=== PATIENT | female | born 1990 | race American Indian/Alaskan Native ===

== ENCOUNTER 2017-10-15 08:07 | Emergency (ER) | payer SELFPAY ==
[2017-10-15] MEDS ORDERED: NACL 0.9% 1000 ML 1,000 ML IV ONE ×2 (09:12→10:53)
[2017-10-15 09:45] LABS: Bacteria,Urine 4+ /HPF (Negative); Bilirubin,Urine NEG (Negative); Blood,Urine NEG (Negative); Color,Urine Yellow (Yellow); Mucus,Urine FEW /HPF
[2017-10-15 09:47] LABS: HCG Qualitative,Urine Negative (Negative)
[2017-10-15 09:48] LABS: WBC,Urine > 182.0 /HPF (0.0-6.0)
[2017-10-15 10:10] LABS: Basophils % (Auto) 0.3 % (0.0-1.8); Eosinophils % (Auto) 0.4 % (0.0-4.3); Hematocrit 42.7 % (30.3-42.9); Lymphocytes # (Auto) 1.3 K/mm3 (1.2-5.4); Lymphocytes % (Auto) 15.9 % (13.4-35.0); Mean Corpuscular HGB Conc 33 % (30-34); Mean Corpuscular Hemoglobin 29 pg (28-32); Mean Corpuscular Volume 90 fl (79-97); Monocytes # (Auto) 0.9 K/mm3 (0.0-0.8); Platelet Count 222 K/mm3 (140-440); Red Blood Count 4.76 M/mm3 (3.65-5.03); Red Cell Distribution Width 14.2 % (13.2-15.2)
[2017-10-15 10:27] LABS: Alanine Aminotransferase 16 units/L (7-56); Albumin 3.8 g/dL (3.9-5); BUN/Creatinine Ratio 8; Blood Urea Nitrogen 5 mg/dL (7-17); Calcium 9.4 mg/dL (8.4-10.2); Hemolysis Index 11
[2017-10-15] MEDS ORDERED: TORADOL IV ONE (10:53)
[2017-10-15] MEDS ORDERED: ROCEPHIN IM ONE (10:53)
[2017-10-15] MEDS ORDERED: XYLOCAINE 1% MPF 5 mL INFILTRATI ONE (10:53)
--- NOTE | 2017-10-15 10:54 | Emergency Department Report ---
ED Female HPI - General Chief complaint: Abdominal Pain Stated complaint: BILATERAL FLANK PAIN Time Seen by Provider: 10/15/17 10:52 Source: patient Mode of arrival: Ambulatory Limitations: No Limitations - History of Present Illness Initial comments: This is a 27-year-old female nontoxic, well nourished in appearance, no acute signs of distress presents to the ED with c/o of dysuria, urinary frequency, pelvic and flank pain x1 week. Patient describes pelvic pain as cramping and aching with level of 3/10 diffuse. Patient denies abdominal pain, vomiting, nausea, Chest pain, short of breath, fever, chills, headache, stiff neck, numbness or tingling. Patient denies any diarrhea or constipation. Patient denies any vaginal bleeding or discharge. Patient denies any recent travels. Patient denies any allergies or significant PMH. MD Complaint: dysuria, pelvic pain, other (bilateral flank pain) -: week(s) (1) Radiation: non-radiating Severity: mild Severity scale (0 -10): 3 Quality: cramping Consistency: intermittent Improves with: none Worsens with: urination Are you Now?: No Last Menstrual Period: 09/15/17 EDC: 06/22/18 Associated Symptoms: dysuria. denies: vaginal discharge, vaginal bleeding, abdominal pain, nausea/vomiting, fever/chills, headaches, loss of appetite, hematuria, rash, seizure, shortness of breath, syncope, weakness - Related Data Previous Rx's Medication Instructions Recorded Last Taken Type Acetaminophen/Codeine [Tylenol 1 tab PO Q6H PRN #12 tab 10/15/17 Unknown Rx /Codeine # 3 tab] Ciprofloxacin HCl [Ciprofloxacin 500 mg PO Q12HR #14 tab 10/15/17 Unknown Rx TAB] Ibuprofen [Motrin] 600 mg PO Q8H PRN #30 tablet 10/15/17 Unknown Rx Ondansetron [Zofran Odt] 4 mg PO Q8HR PRN #20 tab.rapdis 10/15/17 Unknown Rx Allergies Allergy/AdvReac Type Severity Reaction Status Date / Time No Known Allergies Allergy Verified 10/15/17 10:59 ED Review of Systems ROS: Stated complaint: BILATERAL FLANK PAIN Other details as noted in HPI Constitutional: denies: chills, fever Eyes: denies: eye pain, eye discharge, vision change ENT: denies: ear pain, throat pain Respiratory: denies: cough, shortness of breath, wheezing Cardiovascular: denies: chest pain, palpitations Endocrine: no symptoms reported Gastrointestinal: abdominal pain (pelvic pain). denies: nausea, vomiting, diarrhea Genitourinary: urgency, dysuria, frequency. denies: hematuria, discharge, abnormal menses Musculoskeletal: denies: back pain, joint swelling, arthralgia Skin: denies: rash, lesions Neurological: denies: headache, weakness, paresthesias Psychiatric: denies: anxiety, depression Hematological/Lymphatic: denies: easy bleeding, easy bruising ED Past Medical Hx - Past Medical History Previous Medical History?: No - Surgical History Additional Surgical History: lump removed - Social History Smoking Status: Never Smoker - Medications Home Medications: Home Medications Medication Instructions Recorded Confirmed Last Taken Type Acetaminophen/Codeine [Tylenol 1 tab PO Q6H PRN #12 tab 10/15/17 Unknown Rx /Codeine # 3 tab] Ciprofloxacin HCl [Ciprofloxacin 500 mg PO Q12HR #14 tab 10/15/17 Unknown Rx TAB] Ibuprofen [Motrin] 600 mg PO Q8H PRN #30 tablet 10/15/17 Unknown Rx Ondansetron [Zofran Odt] 4 mg PO Q8HR PRN #20 tab.rapdis 10/15/17 Unknown Rx ED Physical Exam - General Limitations: No Limitations General appearance: alert, in no apparent distress - Head Head exam: Present: atraumatic, normocephalic - Eye Eye exam: Present: normal appearance, PERRL, EOMI Pupils: Present: normal accommodation - ENT ENT exam: Present: normal exam, mucous membranes moist - Neck Neck exam: Present: normal inspection, full ROM. Absent: tenderness, meningismus, lymphadenopathy - Respiratory Respiratory exam: Present: normal lung sounds bilaterally. Absent: respiratory distress, wheezes, rales, rhonchi, stridor, chest wall tenderness, accessory muscle use, decreased breath sounds, prolonged expiratory - Cardiovascular Cardiovascular Exam: Present: regular rate, normal rhythm, normal heart sounds. Absent: bradycardia, tachycardia, irregular rhythm, systolic murmur, diastolic murmur, rubs, gallop - GI/Abdominal GI/Abdominal exam: Present: soft, normal bowel sounds. Absent: distended, tenderness, guarding, rebound, rigid, diminished bowel sounds - Expanded GI/Abdominal Exam Expanded GI/Abdominal exam: Absent: psoas sign, obturator sign, heel tap sign, Griffin's sign, Rovsing's sign, tenderness at Mcburney's Point, ascites - Rectal Rectal exam: Present: deferred - Extremities Exam Extremities exam: Present: normal inspection, full ROM, normal capillary refill. Absent: tenderness - Back Exam Back exam: Present: normal inspection, full ROM. Absent: tenderness, CVA tenderness (R), CVA tenderness (L), muscle spasm, paraspinal tenderness, vertebral tenderness, rash noted - Neurological Exam Neurological exam: Present: alert, oriented X3, normal gait - Psychiatric Psychiatric exam: Present: normal affect, normal mood - Skin Skin exam: Present: warm, dry, intact, normal color. Absent: rash ED Course Vital Signs 10/15/17 10/15/17 09:07 12:06 Temperature 98.7 F Pulse Rate 87 Respiratory 17 18 Rate Blood Pressure 140/81 O2 Sat by Pulse 99 Oximetry - Reevaluation(s) Reevaluation #1: 10/15/17 12:08 Patient is speaking in full sentences with no signs of distress noted. - Consultations Consultation #1: 10/15/17 14:02 Patient has been consulted with Jarvis Bartlett about patient history, physical exam, and labs and examined and screened patient and agrees to ED plan of care and discharge plan of care. ED Medical Decision Making - Lab Data Result diagrams: 10/15/17 09:46 10/15/17 09:46 - Medical Decision Making This is a 27-year-old female that presents with UTI and pyelonephritis. Patient is stable and was examined by me and Jarvis Bartlett. There is no significant abdominal tenderness. Negative signs of symptoms of appendicitis. Labs obtained. UA obtained. CT with contrast of abdomen obtained and dictated by the radiologist. Patient is notified of the report with no questions noted by the patient. Vital signs are stable prior to discharge. Patient received Toradol and 1G of Rocephin IV in the ED which patient stated symptoms has resolved and subsided. A by mouth challenge has been obtained and patient tolerated well with no nausea vomiting. Patient was notified of strict precautions of appendicitis symptoms and to return to the ED if symptoms occurs as soon as possible. Patient was also instructed to Follow-up with a primary care doctor in 3-5 days or if symptoms worsen and continue return to emergency room as soon as possible. At time of discharge, the patient does not seem toxic or ill in appearance. No acute signs of distress noted. Patient agrees to discharge treatment plan of care. No further questions noted by the patient. Critical care attestation.: If time is entered above; I have spent that time in minutes in the direct care of this critically ill patient, excluding procedure time. ED Disposition Clinical Impression: Pyelonephritis UTI (urinary tract infection) Qualifiers: Urinary tract infection type: acute pyelonephritis Qualified Code(s): N10 - Acute pyelonephritis Disposition: TO HOME OR SELFCARE Is pt being admited?: No Does the pt Need Aspirin: No Condition: Stable Instructions: Acute Pyelonephritis (ED), Ciprofloxacin (By mouth) Additional Instructions: Follow-up with a primary care doctor in 3-5 days or if symptoms worsen and continue return to emergency room as soon as possible. Prescriptions: Acetaminophen/Codeine [Tylenol /Codeine # 3 tab] 1 tab PO Q6H PRN #12 tab PRN Reason: Pain , Severe (7-10) Ciprofloxacin HCl [Ciprofloxacin TAB] 500 mg PO Q12HR #14 tab Ibuprofen [Motrin] 600 mg PO Q8H PRN #30 tablet PRN Reason: Pain Ondansetron [Zofran Odt] 4 mg PO Q8HR PRN #20 tab.rapdis PRN Reason: Nausea Referrals: PRIMARY CAREMD [Primary Care Provider] - 3-5 Days INNA HAYWARD MD [Staff Physician] - 3-5 Days [facility] [Outside] - 3-5 Days [facility] [Outside] - 3-5 Days Forms: Work/School Release Form(ED)
[2017-10-15] MEDS ORDERED: ROCEPHIN/NS 1 GM/50 ML 1 GM/50 ML BAG IV ONE (13:00)
--- NOTE | 2017-10-15 13:28 | Cat Scan Report ---
FINAL REPORT EXAM: CT ABDOMEN PELVIS W CON HISTORY: flank pain TECHNIQUE: CT of the abdomen and pelvis was performed after the administration of intravenous contrast. Subsequently, CT of the abdomen and pelvis was performed in the delayed phase. Reconstructions were included in the coronal and sagittal planes. PRIORS: None. FINDINGS: Lower thorax: There is a 4 millimeter subpleural pulmonary nodule in the right lower lobe on series 2, image 11. the visualized portions of the heart are normal. Liver: The liver is normal in attenuation. No intrahepatic biliary duct dilation. Tiny low-attenuation right hepatic lesion is too small to characterize but likely represents a small cyst. Gallbladder/ biliary system: No cholelithiasis. The common bile duct appears nondilated. Spleen: No splenic lesions are seen. Pancreas: No pancreatic lesions are seen. No pancreatic duct dilation. Kidneys: Patchy areas of hypo enhancement are seen within the left kidney. No well-defined abscess is seen. No hydronephrosis. Adrenal glands: No adrenal masses. Vasculature: The abdominal and pelvic vasculature is patent without variant anatomy. Apparent filling defect in the main portal vein likely related to contrast mixing due to the phase of contrast. Lymph nodes: No enlarged lymph nodes are seen in the abdomen or pelvis. Bowel, mesentery, peritoneum: No bowel obstruction. No free fluid or free air. The appendix is normal. No colonic diverticulosis. No bowel wall thickening. Urinary bladder: No filling defects are seen. Pelvis: 3.2 centimeters cyst is seen within the left ovary. The uterus and right ovary appear unremarkable. There is a small amount of free fluid in pelvis. Abdominal wall: No abdominal wall hernia or other subcutaneous findings. Bones: No acute or chronic osseous finding. IMPRESSION: 1. Findings in the left kidney concerning for pyelonephritis. 2. 3.2 centimeters simple left ovarian cyst. 3. 4 millimeter right lower lobe pulmonary nodule. Consider further evaluation with chest CT to exclude other pulmonary nodules. 4. Tiny probable simple right hepatic cyst.
[2017-10-15 14:39] VITALS: BP 138/80
== END 2017-10-15 14:14 | disposition home or self-care (01) ==
LOC: ED 08:07
DX: N10 Acute pyelonephritis (principal); N39.0 Urinary tract infection, site not specified
CPT/HCPCS: 36415; 74177; 80053; 81001; 81025; 85025; 96365; 96375; 99284; J0696; J1885; J7030; Q9967